=== PATIENT | female | born 1965 | race Two or more races ===

== ENCOUNTER 2019-03-22 09:55 | Outpatient (CLI) | payer OTHER | END 2019-03-22 10:07 | disposition home or self-care (01) | LOC: SONOGRAMA 09:55 → MAMO-SONO 10:15 | DX: E04.1 Nontoxic single thyroid nodule (principal); G56.03 Carpal tunnel syndrome, bilateral upper limbs ==

== ENCOUNTER 2023-04-20 01:05 | Inpatient (IN) | payer OTHER ==
[~2023-04-20] VITALS: Ht 149.9 cm; Wt 62.6 kg
[2023-04-20] MEDS ORDERED: KEPPRA750 MG PO (01:25)
[2023-04-20] MEDS ORDERED: KEPPRA1000 MG (01:26)
[2023-04-20] MEDS ORDERED: GLIMEPIRIDE2 MG (01:26)
[2023-04-25] MEDS ORDERED: PANTOPRAZOLE SO40 MG PO (11:13)
[2023-04-25] MEDS ORDERED: TUSSIN MUC100 MG/5 M PO (11:13)
[2023-04-25] MEDS ORDERED: MEDROL4 MG PO (11:14)
[2023-04-25] MEDS ORDERED: BUDESONIDE0.5 MG/2 M IH (11:15)
[2023-04-25] MEDS ORDERED: XOPENEX CO1.25 MG/0. IH (11:15)
[2023-04-25] MEDS ORDERED: AMLODIPINE BESYL5 MG PO (11:17)
[2023-04-25] MEDS ORDERED: PAIN RELIEVER500 M2 PO (11:18)
[2023-04-25] MEDS ORDERED: CLONAZEPAM0.5 MG PO (11:18)
[2023-04-25] MEDS ORDERED: KEPPRA500 MG PO ×2 (11:19)
[2023-04-25] MEDS ORDERED: LEVOTHYROXINE25 MCG PO (11:19)
[2023-04-25] MEDS ORDERED: MELATONIN5 M2 PO (11:20)
== END 2023-04-25 14:25 | disposition home or self-care (01) | DRG 177 ==
LOC: ER 01:05 → MEDJ 10:55
PROVIDERS: ADMIT Internal Medicine; ATTEND Internal Medicine
PROC: BB24ZZZ Computerized Tomography (CT Scan) of Bilateral Lungs (ICD-10-PCS; principal; 2023-04-20)
PROC: 3E0F7GC Introduction of Other Therapeutic Substance into Respiratory Tract, Via Natural or Artificial Opening (ICD-10-PCS; 2023-04-20)
PROC: 4A12X4Z Monitoring of Cardiac Electrical Activity, External Approach (ICD-10-PCS; 2023-04-20)
DX: U07.1 COVID-19 (principal); J12.82 Pneumonia due to coronavirus disease 2019; N17.8 Other acute kidney failure; N39.0 Urinary tract infection, site not specified; G40.89 Other seizures; R09.02 Hypoxemia; I10 Essential (primary) hypertension; E11.9 Type 2 diabetes mellitus without complications; E03.8 Other specified hypothyroidism; Z79.4 Long term (current) use of insulin; G47.33 Obstructive sleep apnea (adult) (pediatric); E66.3 Overweight; Z68.27 Body mass index [BMI] 27.0-27.9, adult